=== PATIENT | male | born 1945 | race Two or more races ===

== ENCOUNTER → 2016-12-23 | Outpatient (CLI) | payer MEDICARE, OTHER ==
[2016-12-23 10:50] LABS: Basophils # (auto) 0.1 uL; Basophils % (auto) 0.9 % (0.0-2.0); Eosinophils # (auto) 0.3 uL; Eosinophils % (auto) 5.1 % (0.0-7.0); Hematocrit 46.2 % (41.0-53.0); Hemoglobin 14.5 g/dL (13.5-17.5); Lymphocytes % (auto) 31.4 % (10.0-50.0); Mean Corpuscular Hgb Conc. 31.5 g/dL (32.0-36.0); Mean Platelet Volume 8.9 fL (7.4-10.4); Monocytes # (auto) 0.5 uL; Monocytes % (auto) 7.7 % (0.0-12.0); Neutrophils # (auto) 3.5 uL; Neutrophils % (auto) 54.9 % (37.0-80.0); Platelet Count (auto) 223 10^3/uL (140-450); Urine Bilirubin Negative (Negative); Urine Blood Negative /uL (Negative); Urine Color Yellow (Yellow); Urine Glucose Normal (Normal); Urine Ketone Negative (Negative); Urine Nitrite Negative (Negative); Urine RBC 1 /hpf (0 - 3); Urine Squamous Epithelial Cell FEW /hpf (<5); Urine Urobilinogen Normal (Negative); Urine pH 6.5 (5.0-8.0); White Blood Cell 6.3 10^3/uL (4.4-10.8)
[2016-12-23 11:27] LABS: BUN/Creatinine Ratio 8.8; Bilirubin, Total 0.6 mg/dL (0.2-1.0); Calcium 9.2 mg/dL (8.5-10.1); Potassium 4.4 mmol/L (3.5-5.1); Total Protein 7.9 g/dL (6.4-8.2)
== END | disposition home or self-care (01) ==
LOC: LAB 09:54
PROVIDERS: ATTEND Internal Medicine
DX: I10 Essential (primary) hypertension (principal); E11.40 Type 2 diabetes mellitus with diabetic neuropathy, unspecified; E55.9 Vitamin D deficiency, unspecified
CPT/HCPCS: 36415; 80053; 80061; 81001; 82043; 82270; 82306; 83036; 85025

== ENCOUNTER → 2017-05-12 | Outpatient (CLI) | payer MEDICARE ==
[2017-05-12 10:25] LABS: Albumin 3.4 g/dL (3.4-5.0); BUN/Creatinine Ratio 18.5; Bilirubin, Total 0.7 mg/dL (0.2-1.0); Calcium 9.2 mg/dL (8.5-10.1); Total Protein 7.2 g/dL (6.4-8.2)
== END | disposition home or self-care (01) ==
LOC: LAB 09:47
PROVIDERS: ATTEND Internal Medicine
DX: E78.2 Mixed hyperlipidemia (principal); I10 Essential (primary) hypertension
CPT/HCPCS: 36415; 80053; 80061; 83036

== ENCOUNTER → 2017-05-30 | Outpatient (CLI) | payer MEDICARE, OTHER | END | disposition home or self-care (01) | LOC: XYW 08:16 | PROVIDERS: ATTEND Internal Medicine | DX: I08.0 Rheumatic disorders of both mitral and aortic valves (principal) | CPT/HCPCS: 93306 ==

== ENCOUNTER → 2017-09-25 | Outpatient (CLI) | payer MEDICARE, OTHER ==
[2017-09-25 09:55] LABS: Albumin 3.4 g/dL (3.4-5.0); BUN/Creatinine Ratio 21.3; Bilirubin, Total 0.8 mg/dL (0.2-1.0); Calcium 8.9 mg/dL (8.5-10.1); Potassium 3.9 mmol/L (3.5-5.1); Total Protein 7.4 g/dL (6.4-8.2)
== END | disposition home or self-care (01) ==
LOC: LAB 08:19
PROVIDERS: ATTEND Nurse Practitioner
DX: I10 Essential (primary) hypertension (principal); E11.9 Type 2 diabetes mellitus without complications; R35.1 Nocturia; R35.0 Frequency of micturition
CPT/HCPCS: 36415; 80053; 83036; 84153; 86803

== ENCOUNTER → 2018-02-13 | Outpatient (CLI) | payer MEDICARE ==
[2018-02-13 08:43] LABS: Basophils # (auto) 0.1 uL; Basophils % (auto) 1.1 % (0.0-2.0); Eosinophils # (auto) 0.3 uL; Eosinophils % (auto) 4.5 % (0.0-7.0); Hematocrit 40.3 % (41.0-53.0); Hemoglobin 13.2 g/dL (13.5-17.5); Lymphocytes # (auto) 1.4 uL; Lymphocytes % (auto) 20.4 % (10.0-50.0); Mean Corpuscular Hemoglobin 27.9 pg (28.0-32.0); Mean Corpuscular Hgb Conc. 32.8 g/dL (32.0-36.0); Mean Corpuscular Volume 84.9 fL (80.0-100.0); Monocytes # (auto) 0.6 uL; Monocytes % (auto) 8.1 % (0.0-12.0); Neutrophils # (auto) 4.6 uL; Neutrophils % (auto) 65.9 % (37.0-80.0); Nucleated Red Blood Cells % 0.1 %; Platelet Count (auto) 166 10^3/uL (140-450); Red Blood Cells 4.75 10^6/uL (4.5-5.90); Red Cell Distribution Width 17.9 % (11.8-14.3)
[2018-02-13 08:52] LABS: Urine Bacteria NONE SEEN /hpf (None Seen); Urine Blood Negative /uL (Negative); Urine Specific Gravity 1.011 (1.001-1.035); Urine WBC 2 /hpf (0 - 3)
[2018-02-13 09:44] LABS: Albumin 3.7 g/dL (3.4-5.0); BUN/Creatinine Ratio 18.1; Calcium 9.4 mg/dL (8.5-10.1); Total Protein 7.7 g/dL (6.4-8.2)
== END | disposition home or self-care (01) ==
LOC: LAB 07:29
PROVIDERS: ATTEND Nurse Practitioner
DX: E11.40 Type 2 diabetes mellitus with diabetic neuropathy, unspecified (principal); E78.5 Hyperlipidemia, unspecified; I10 Essential (primary) hypertension
CPT/HCPCS: 36415; 80053; 80061; 81001; 82043; 83036; 84443; 85025

== ENCOUNTER → 2018-06-19 | Outpatient (CLI) | payer MEDICARE, OTHER | END | disposition home or self-care (01) | LOC: Rad HDHVI 12:47 | PROVIDERS: ATTEND Internal Medicine | DX: I07.1 Rheumatic tricuspid insufficiency (principal); I10 Essential (primary) hypertension; M79.89 Other specified soft tissue disorders; E11.9 Type 2 diabetes mellitus without complications | CPT/HCPCS: 93306; 93970 ==

== ENCOUNTER → 2018-06-21 | Outpatient (CLI) | payer MEDICARE, OTHER ==
[~2018-06-21] VITALS: Ht 162.6 cm; Wt 89.4 kg
== END | disposition home or self-care (01) ==
LOC: Rad HDHVI 13:28
PROVIDERS: ATTEND Internal Medicine Cardiovascular Disease
DX: I10 Essential (primary) hypertension (principal); E11.9 Type 2 diabetes mellitus without complications; R60.0 Localized edema; R06.02 Shortness of breath; Z88.2 Allergy status to sulfonamides; Z88.6 Allergy status to analgesic agent
CPT/HCPCS: 78452; 93017; 96374; A9500

== ENCOUNTER → 2018-07-02 | Outpatient (CLI) | payer MEDICARE, OTHER ==
[2018-07-02 08:59] LABS: Basophils # (auto) 0.1 uL; Eosinophils # (auto) 0.4 uL; Eosinophils % (auto) 5.9 % (0.0-7.0); Hemoglobin 14.2 g/dL (13.5-17.5); Lymphocytes # (auto) 1.9 uL; Lymphocytes % (auto) 27.3 % (10.0-50.0); Mean Corpuscular Hemoglobin 29.3 pg (28.0-32.0); Mean Corpuscular Hgb Conc. 33.7 g/dL (32.0-36.0); Mean Corpuscular Volume 86.7 fL (80.0-100.0); Monocytes # (auto) 0.6 uL; Monocytes % (auto) 8.9 % (0.0-12.0); Neutrophils # (auto) 3.9 uL; Neutrophils % (auto) 56.9 % (37.0-80.0); Nucleated Red Blood Cells % 0.1 %; Platelet Count (auto) 141 10^3/uL (140-450); Red Blood Cells 4.85 10^6/uL (4.5-5.90); Red Cell Distribution Width 16.5 % (11.8-14.3); White Blood Cell 6.9 10^3/uL (4.4-10.8)
[2018-07-02 09:02] LABS: Urine Bacteria NONE SEEN /hpf (None Seen); Urine Blood Negative /uL (Negative); Urine Specific Gravity 1.018 (1.001-1.035); Urine WBC 1 /hpf (0 - 3)
[2018-07-02 09:30] LABS: Albumin 3.8 g/dL (3.4-5.0); BUN/Creatinine Ratio 22.2; Bilirubin, Total 0.7 mg/dL (0.2-1.0); Calcium 9.4 mg/dL (8.5-10.1); Potassium 3.6 mmol/L (3.5-5.1); Total Protein 7.8 g/dL (6.4-8.2)
[2018-07-02 11:20] LABS: Hepatitis B Surface Antibody Negative
[2018-07-02 11:49] LABS: Hepatitis A Total Antibody Negative
[2018-07-02 13:04] LABS: Hepatitis B Core Total AB Negative; Hepatitis B Surface Antigen Negative (Negative); Hepatitis C Antibody Negative (Negative)
== END | disposition home or self-care (01) ==
LOC: LAB 07:23
PROVIDERS: ATTEND Nurse Practitioner
DX: E11.9 Type 2 diabetes mellitus without complications (principal); E78.5 Hyperlipidemia, unspecified; I10 Essential (primary) hypertension; J45.909 Unspecified asthma, uncomplicated; Z79.899 Other long term (current) drug therapy
CPT/HCPCS: 36415; 80053; 81001; 82043; 82306; 83036; 85025; 86704; 86706; 86708; 86803; 87340

== ENCOUNTER → 2018-09-20 | Outpatient (CLI) | payer MEDICARE, OTHER | END | disposition home or self-care (01) | LOC: Rad HDHVI 07:52 | PROVIDERS: ATTEND Internal Medicine | DX: I07.1 Rheumatic tricuspid insufficiency (principal); I10 Essential (primary) hypertension; I42.9 Cardiomyopathy, unspecified | CPT/HCPCS: 93306 ==

== ENCOUNTER → 2019-01-29 | Outpatient (CLI) | payer MEDICARE, OTHER | END | disposition home or self-care (01) | LOC: Rad HDHVI 09:56 | PROVIDERS: ATTEND Internal Medicine | DX: I08.1 Rheumatic disorders of both mitral and tricuspid valves (principal); I42.9 Cardiomyopathy, unspecified; I10 Essential (primary) hypertension; E11.9 Type 2 diabetes mellitus without complications | CPT/HCPCS: 93306 ==

== ENCOUNTER → 2021-11-12 | Outpatient (CLI) | payer MEDICARE, OTHER ==
[2021-11-12 11:30] LABS: Basophils # (auto) 0.1 10 ^3/uL (0-0.2); Basophils % (auto) 1.3 % (0.0-2.0); Eosinophils # (auto) 0.2 10 ^3/uL (0-0.8); Eosinophils % (auto) 3.6 % (0.0-7.0); Hematocrit 40.4 % (41.0-53.0); Hemoglobin 13.2 g/dL (13.5-17.5); Lymphocytes # (auto) 1.1 10 ^3/uL (0.4-5.4); Lymphocytes % (auto) 18.5 % (10.0-50.0); Mean Corpuscular Hemoglobin 28.8 pg (28.0-32.0); Mean Corpuscular Hgb Conc. 32.7 g/dL (32.0-36.0); Mean Corpuscular Volume 88.2 fL (80.0-100.0); Monocytes # (auto) 0.5 10 ^3/uL (0-1.3); Monocytes % (auto) 8.1 % (0.0-12.0); Neutrophils # (auto) 4.1 10 ^3/uL (1.6-8.6); Neutrophils % (auto) 68.5 % (37.0-80.0); Nucleated Red Blood Cells % 0.1 %; Red Blood Cells 4.58 10^6/uL (4.5-5.90); Red Cell Distribution Width 15.6 % (11.8-14.3); White Blood Cell 5.9 10^3/uL (4.4-10.8)
[2021-11-12 11:31] LABS: Urine Blood Negative /uL (Negative); Urine Specific Gravity 1.018 (1.001-1.035)
[2021-11-12 11:45] LABS: Albumin 3.4 g/dL (3.4-5.0); Calcium 9.1 mg/dL (8.5-10.1); Potassium 3.7 mmol/L (3.5-5.1)
[2021-11-12 11:52] LABS: BUN/Creatinine Ratio 18.9; Bilirubin, Total 1.3 mg/dL (0.2-1.0); Total Protein 7.4 g/dL (6.4-8.2)
[2021-11-12 11:54] LABS: Free T4 (Free Thyroxine) 1.45 ng/dL (0.89-1.76); Prostate Specific Antigen 1.01 ng/mL (0.0-4.0)
== END | disposition home or self-care (01) ==
LOC: LAB 08:26
PROVIDERS: ATTEND Internal Medicine
DX: C61 Malignant neoplasm of prostate (principal); E11.9 Type 2 diabetes mellitus without complications; D51.3 Other dietary vitamin B12 deficiency anemia; D64.9 Anemia, unspecified; E55.9 Vitamin D deficiency, unspecified; I10 Essential (primary) hypertension; R00.2 Palpitations; R53.1 Weakness; R30.0 Dysuria
CPT/HCPCS: 36415; 80053; 80061; 81003; 82306; 82607; 83036; 84153; 84403; 84439; 84443; 85025

== ENCOUNTER → 2021-11-17 | Outpatient (CLI) | payer MEDICARE, OTHER | END | disposition home or self-care (01) | LOC: Rad HDHVI 10:00 | PROVIDERS: ATTEND Internal Medicine | DX: I08.8 Other rheumatic multiple valve diseases (principal); I48.91 Unspecified atrial fibrillation; I10 Essential (primary) hypertension; I42.0 Dilated cardiomyopathy | CPT/HCPCS: 93306 ==

== ENCOUNTER → 2021-11-22 | Outpatient (CLI) | payer MEDICARE, OTHER ==
[~2021-11-22] VITALS: Ht 162.6 cm; Wt 89.4 kg
[~2021-11-22] MED LIST: ADENOSINE 75 MG in GIVE UN-DILUTED 0 ML IV ONE; ADENOSINE 90 MG/30 ML INJ IV ONE; APIX5TAB PO; CHLO25TA2 PO; EMPA1TAB3 PO; FURO20TA3 PO; GLYB5TAB8 PO; LOSA-39 PO; METF-929 PO; SACU1TAB PO
== END | disposition home or self-care (01) ==
LOC: Rad HDHVI 08:58
PROVIDERS: ATTEND Internal Medicine
DX: I10 Essential (primary) hypertension (principal)
CPT/HCPCS: J0153

== ENCOUNTER → 2021-11-30 | Outpatient (CLI) | payer MEDICARE, OTHER ==
[~2021-11-30] VITALS: Ht 162.6 cm; Wt 89.4 kg
[~2021-11-30] MED LIST changes: -ADENOSINE 75 MG in GIVE UN-DILUTED 0 ML IV ONE; -ADENOSINE 90 MG/30 ML INJ IV ONE; -APIX5TAB PO; -CHLO25TA2 PO; +DOBUTamine 1000MCG/ML 100 ML IV ONE; +DOBUTamine 1000MCG/ML 250 ML IV ONE; -EMPA1TAB3 PO; -FURO20TA3 PO; -GLYB5TAB8 PO; -LOSA-39 PO; -METF-929 PO; -SACU1TAB PO
== END | disposition home or self-care (01) ==
LOC: Rad HDHVI 09:01
PROVIDERS: ATTEND Internal Medicine
DX: I11.0 Hypertensive heart disease with heart failure (principal); I50.22 Chronic systolic (congestive) heart failure; I42.0 Dilated cardiomyopathy; E11.42 Type 2 diabetes mellitus with diabetic polyneuropathy; E78.2 Mixed hyperlipidemia; Z82.49 Family history of ischemic heart disease and other diseases of the circulatory system
CPT/HCPCS: 78452; 93005; 96374; 96375; A9500; J1250

== ENCOUNTER 2022-01-12 08:29 | Inpatient (IN) | payer MEDICARE, OTHER ==
[2022-01-12] VITALS (8 sets, daily range): BP systolic 101–129; BP diastolic 51–64
[~2022-01-12] VITALS: Ht 162.6 cm; Wt 85.0 kg
[~2022-01-12 08:29] MED LIST changes: +APIX5TAB PO; +CHLO25TA2 PO; -DOBUTamine 1000MCG/ML 100 ML IV ONE; -DOBUTamine 1000MCG/ML 250 ML IV ONE; +EMPA1TAB3 PO; +FURO20TA3 PO; +GLYB5TAB8 PO; +LOSA-39 PO; +METF-929 PO; +SACU1TAB PO
[2022-01-12] MEDS ORDERED: ANGIOMAX 250 MG VIAL IV ONE (09:18)
[2022-01-12] MEDS ORDERED: HEPARIN SODIUM (PORCINE) 5000 UNITS/ML 1ML VIAL ONE (09:18)
[2022-01-12] MEDS ORDERED: LIDOCAINE 2%HCL (LOCAL ANESTH.) INJ 20ML MDV ONE (09:19)
[2022-01-12] MEDS ORDERED: SODIUM CHL 0.9% 0 ML ONE (09:19)
[2022-01-12] MEDS ORDERED: HEPARIN IN NS 1000Units/500mL 1,500 ML ONE (09:19)
[2022-01-12] MEDS ORDERED: fentaNYL CITRATE 100 MCG/2 ML VL ONE (09:19)
[2022-01-12] MEDS ORDERED: VERAPAMIL 2.5MG/ML INJ 2ML VIAL IV ONE (09:19)
[2022-01-12] MEDS ORDERED: MIDAZOLAM HCL 2MG/2ML 2ml VIAL (1mg/ml) ONE (09:19)
[2022-01-12] MEDS ORDERED: IODIXANOL 320MG/ML 100ML BTL IV ONE (09:41)
[2022-01-12] MEDS ORDERED: MORPHINE SULFATE INJECTION 2 MG/ML SYRG IV PRN (10:30)
[2022-01-12] MEDS ORDERED: NITROGLYCERIN 0.4 MG SL TAB SL PRN (10:30)
[2022-01-12] MEDS: SODIUM CHL 0.9% 1,000 ML IV SCH (13:17)
[2022-01-12] MEDS ORDERED: DEXTROSE (50%) 50ML SYRG IV PRN (18:45)
[2022-01-12] MEDS: InsuLIN REG 1unit/0.01ml Soln (100units/ml) SC SCH (20:17)
[2022-01-12] MEDS: ACCU-CHEK COMFORT CURVE STRIP VI SCH (20:18)
[2022-01-13 05:00] VITALS: BP 119/58
[2022-01-13] MEDS: InsuLIN REG 1unit/0.01ml Soln (100units/ml) SC SCH ×4 (06:43→22:00)
[2022-01-13] MEDS: ACCU-CHEK COMFORT CURVE STRIP VI SCH ×4 (06:44→21:48)
[2022-01-13] MEDS ORDERED: glyBURIDE 5 MG TAB PO SCH (07:00)
[2022-01-13 09:00] VITALS: BP 128/62
[2022-01-13] MEDS: LOSARTAN POTASSIUM 50 MG TAB PO SCH (09:31)
[2022-01-13] MEDS ORDERED: CLOPIDOGREL BISULFATE 75 MG TAB PO ONE (11:45)
[2022-01-13 12:53] LABS: Basophils # (auto) 0 10 ^3/uL (0-0.2); Basophils % (auto) 0.4 % (0.0-2.0); Eosinophils # (auto) 0.3 10 ^3/uL (0-0.8); Eosinophils % (auto) 6.4 % (0.0-7.0); Hematocrit 45.2 % (41.0-53.0); Hemoglobin 14.9 g/dL (13.5-17.5); Lymphocytes # (auto) 1.1 10 ^3/uL (0.4-5.4); Lymphocytes % (auto) 19.8 % (10.0-50.0); Mean Corpuscular Hemoglobin 28.7 pg (28.0-32.0); Mean Corpuscular Hgb Conc. 32.9 g/dL (32.0-36.0); Mean Corpuscular Volume 87.3 fL (80.0-100.0); Monocytes # (auto) 0.5 10 ^3/uL (0-1.3); Neutrophils # (auto) 3.5 10 ^3/uL (1.6-8.6); Neutrophils % (auto) 64.4 % (37.0-80.0); Nucleated Red Blood Cells % 0.2 %; Red Blood Cells 5.17 10^6/uL (4.5-5.90); Red Cell Distribution Width 17.3 % (11.8-14.3); White Blood Cell 5.4 10^3/uL (4.4-10.8)
[2022-01-13 13:00] VITALS: BP 140/63
[2022-01-13 13:05] LABS: Albumin 3.5 g/dL (3.4-5.0); Calcium 9.4 mg/dL (8.5-10.1)
[2022-01-13 13:10] LABS: Bilirubin, Total 0.8 mg/dL (0.2-1.0); Total Protein 7.6 g/dL (6.4-8.2)
[2022-01-13 20:00] VITALS: BP 138/70
[2022-01-13] MEDS: ATORVASTATIN 20 MG TAB PO SCH (21:48)
[2022-01-13 22:00] VITALS: BP 152/105
[2022-01-13 22:30] VITALS: BP 142/73
[2022-01-14] VITALS (13 sets, daily range): BP systolic 39–137; BP diastolic 19–96
[2022-01-14 06:18] LABS: Hemoglobin 15.6 g/dL (13.5-17.5); Mean Corpuscular Hemoglobin 29.3 pg (28.0-32.0); Mean Corpuscular Volume 86.4 fL (80.0-100.0); Red Blood Cells 5.33 10^6/uL (4.5-5.90); Red Cell Distribution Width 17.1 % (11.8-14.3); White Blood Cell 8.1 10^3/uL (4.4-10.8)
[2022-01-14] MEDS: ACCU-CHEK COMFORT CURVE STRIP VI SCH ×6 (06:28→23:28)
[2022-01-14] MEDS: InsuLIN REG 1unit/0.01ml Soln (100units/ml) SC SCH ×5 (06:30→23:28)
[2022-01-14 06:39] LABS: Basophils % (manual) 0 (0.0-2.0); Blast Cells 0; Metamyelocytes % 0; Myelocytes % 0; Promyelocytes % 0; Reactive Lymphocytes 0
[2022-01-14 06:43] LABS: Potassium 3.7 mmol/L (3.5-5.1)
[2022-01-14 06:54] LABS: BUN/Creatinine Ratio 22.3; Calcium 9.6 mg/dL (8.5-10.1); Magnesium 2.3 mg/dL (1.6-2.6)
[2022-01-14 07:30] LABS: INR 1.1 (0.9-1.15); Partial Thromboplastin Time 26.1 sec (23.6-33.0)
[2022-01-14 08:34] LABS: Band Neutrophils % (manual) 4; Eosinophils % (manual) 6 (0-7); Lymphocytes % (manual) 3 (10.0-50.0); Monocytes % (manual) 4 (0-12)
[2022-01-14] MEDS: LOSARTAN POTASSIUM 50 MG TAB PO SCH (10:00)
[2022-01-14] MEDS: CLOPIDOGREL BISULFATE 75 MG TAB PO SCH (10:00)
[2022-01-14] MEDS: CHOLECALCIFEROL (VITD3) 2,000 UNIT CAP/TAB PO SCH (11:19)
[2022-01-14] MEDS ORDERED: VERAPAMIL 2.5MG/ML INJ 2ML VIAL IV ONE (15:02)
[2022-01-14] MEDS ORDERED: ANGIOMAX 250 MG VIAL IV ONE ×3 (15:02→18:52)
[2022-01-14] MEDS ORDERED: HEPARIN SODIUM (PORCINE) 5000 UNITS/ML 1ML VIAL ONE (15:02)
[2022-01-14] MEDS ORDERED: SODIUM CHL 0.9% 50 ML ONE ×3 (15:03→18:52)
[2022-01-14] MEDS ORDERED: fentaNYL CITRATE 100 MCG/2 ML VL ONE ×4 (15:03→20:49)
[2022-01-14] MEDS ORDERED: MIDAZOLAM HCL 2MG/2ML 2ml VIAL (1mg/ml) ONE ×4 (15:03→17:34)
[2022-01-14] MEDS ORDERED: LIDOCAINE 2%HCL (LOCAL ANESTH.) INJ 10ml MDV ONE (15:09)
[2022-01-14] MEDS ORDERED: IODIXANOL 320MG/ML 100ML BTL IV ONE ×3 (15:09→18:44)
[2022-01-14] MEDS ORDERED: DOPamine 1600MCG/ML D5W 250 ML IV ONE (18:07)
[2022-01-14] MEDS ORDERED: EPINEPHrine HCL 1 MG/10 ML SYRG ONE (18:12)
[2022-01-14] MEDS ORDERED: ONDANSETRON HCL 4 MG/2 ML VIAL ONE ×2 (18:16→21:49)
[2022-01-14] MEDS ORDERED: [UNRECOGNIZED DRUG - OTHER] IV ONE (18:19)
[2022-01-14] MEDS ORDERED: NOREPINEPHRINE 8 MG/250ML KIT 250 ML IV ONE (18:21)
[2022-01-14] MEDS ORDERED: PANTOPRAZOLE 40 MG/10 ML VIAL INJ IV ONE (19:30)
[2022-01-14] MEDS ORDERED: D5W 5% 1,000 ML IV SCH (20:15)
[2022-01-14] MEDS ORDERED: D5W 5% XX ONE (21:00)
[2022-01-14] MEDS ORDERED: HEPARIN SODIUM XX ONE (21:00)
[2022-01-14] MEDS ORDERED: DEXTROSE (50%) 50ML SYRG IV PRN (21:30)
[2022-01-14] MEDS: DOPamine 1600MCG/ML D5W 250 ML IV SCH (21:30)
[2022-01-14] MEDS ORDERED: CLOPIDOGREL BISULFATE 75 MG TAB ONE (21:34)
[2022-01-14] MEDS ORDERED: HETASTARCH 500 ML IV ONE (21:45)
[2022-01-14] MEDS: ONDANSETRON HCL 4 MG/2 ML VIAL IV PRN (21:50)
[2022-01-14] MEDS: ATORVASTATIN 20 MG TAB PO SCH (22:00)
[2022-01-14 22:17] LABS: Hemoglobin 13.8 g/dL (13.5-17.5); Mean Corpuscular Hemoglobin 29.2 pg (28.0-32.0); Mean Corpuscular Hgb Conc. 33.7 g/dL (32.0-36.0); Mean Corpuscular Volume 86.8 fL (80.0-100.0); Red Blood Cells 4.72 10^6/uL (4.5-5.90); Red Cell Distribution Width 17.8 % (11.8-14.3)
[2022-01-14 22:19] LABS: Basophils % (manual) 0 (0.0-2.0); Blast Cells 0; Metamyelocytes % 0; Myelocytes % 0; Promyelocytes % 0; Reactive Lymphocytes 0
[2022-01-14 22:33] LABS: Band Neutrophils % (manual) 38; Eosinophils % (manual) 1 (0-7); Lymphocytes % (manual) 6 (10.0-50.0); Monocytes % (manual) 2 (0-12)
[2022-01-14 23:53] LABS: Calcium 8.6 mg/dL (8.5-10.1); Potassium 3.7 mmol/L (3.5-5.1)
[2022-01-14 23:56] LABS: BUN/Creatinine Ratio 22.9; Bilirubin, Total 3.1 mg/dL (0.2-1.0); Total Protein 6.8 g/dL (6.4-8.2)
[2022-01-15] VITALS (100 sets, daily range): BP systolic 40–115; BP diastolic 15–82
[2022-01-15 00:45] LABS: INR > 8.0 (0.9-1.15)
[2022-01-15 00:46] LABS: Partial Thromboplastin Time 120.3 sec (23.6-33.0)
[2022-01-15] MEDS ORDERED: ALBUMIN 5% 250 ML IV ONE (01:45)
[2022-01-15 04:21] LABS: Basophils # (auto) 0 10 ^3/uL (0-0.2); Eosinophils # (auto) 0.1 10 ^3/uL (0-0.8); Eosinophils % (auto) 0.6 % (0.0-7.0); Hematocrit 37.9 % (41.0-53.0); Hemoglobin 12.6 g/dL (13.5-17.5); Lymphocytes # (auto) 0.2 10 ^3/uL (0.4-5.4); Mean Corpuscular Hemoglobin 29.2 pg (28.0-32.0); Mean Corpuscular Hgb Conc. 33.3 g/dL (32.0-36.0); Mean Corpuscular Volume 87.7 fL (80.0-100.0); Monocytes % (auto) 8.6 % (0.0-12.0); Neutrophils # (auto) 10.1 10 ^3/uL (1.6-8.6); Neutrophils % (auto) 88.8 % (37.0-80.0); Red Blood Cells 4.32 10^6/uL (4.5-5.90); Red Cell Distribution Width 17.4 % (11.8-14.3); White Blood Cell 11.4 10^3/uL (4.4-10.8)
[2022-01-15 04:30] LABS: BUN/Creatinine Ratio 21.5; Calcium 8.3 mg/dL (8.5-10.1); Potassium 4.1 mmol/L (3.5-5.1)
[2022-01-15 05:14] LABS: INR 5.46 (0.9-1.15); Partial Thromboplastin Time 94.4 sec (23.6-33.0)
[2022-01-15] MEDS: ACCU-CHEK COMFORT CURVE STRIP VI SCH ×5 (05:37→23:48)
[2022-01-15] MEDS: InsuLIN REG 1unit/0.01ml Soln (100units/ml) SC SCH ×6 (05:37→23:48)
[2022-01-15 09:51] LABS: INR 2.57 (0.9-1.15); Partial Thromboplastin Time 68.9 sec (23.6-33.0)
[2022-01-15] MEDS: LOSARTAN POTASSIUM 50 MG TAB PO SCH (10:00)
[2022-01-15] MEDS: HEPARIN DRIP/D5W 100UNITS/ML 250 ML IV SCH ×2 (11:37→21:04)
[2022-01-15] MEDS: MILRINONE 20MG/100ML 100 ML IV SCH ×3 (11:38→18:05)
[2022-01-15] MEDS: NOREPINEPHRINE 8 MG/250ML KIT 250 ML IV SCH ×2 (11:38→21:45)
[2022-01-15] MEDS: EPINEPHrine HCL 250 ML IV SCH ×2 (11:38→21:45)
[2022-01-15] MEDS: PHENYLEPHRINE IV 250 ML IV SCH ×4 (11:39→22:45)
[2022-01-15] MEDS ORDERED: LIDOCAINE 2% JELLY 11ml (GLYDO) UR ONE (11:45)
[2022-01-15] MEDS: CLOPIDOGREL BISULFATE 75 MG TAB PO SCH (12:00)
[2022-01-15] MEDS: PANTOPRAZOLE 40 MG/10 ML VIAL INJ IV SCH (12:00)
[2022-01-15] MEDS: CHOLECALCIFEROL (VITD3) 2,000 UNIT CAP/TAB PO SCH (12:00)
[2022-01-15] MEDS: DOPamine 1600MCG/ML D5W 250 ML IV SCH (12:45)
[2022-01-15 15:20] LABS: Partial Thromboplastin Time 62.4 sec (23.6-33.0)
[2022-01-15 19:02] LABS: INR 1.71 (0.9-1.15); Partial Thromboplastin Time 56.8 sec (23.6-33.0)
[2022-01-15] MEDS: ONDANSETRON HCL 4 MG/2 ML VIAL IV PRN (19:32)
[2022-01-15] MEDS: ATORVASTATIN 20 MG TAB PO SCH (22:00)
[2022-01-15 22:52] LABS: Basophils # (auto) 0 10 ^3/uL (0-0.2); Basophils % (auto) 0.1 % (0.0-2.0); Eosinophils # (auto) 0.4 10 ^3/uL (0-0.8); Eosinophils % (auto) 4.2 % (0.0-7.0); Hematocrit 31.4 % (41.0-53.0); Hemoglobin 10.7 g/dL (13.5-17.5); Lymphocytes # (auto) 0.6 10 ^3/uL (0.4-5.4); Lymphocytes % (auto) 5.8 % (10.0-50.0); Mean Corpuscular Hemoglobin 29.3 pg (28.0-32.0); Mean Corpuscular Hgb Conc. 34.1 g/dL (32.0-36.0); Mean Corpuscular Volume 85.8 fL (80.0-100.0); Monocytes # (auto) 1.2 10 ^3/uL (0-1.3); Monocytes % (auto) 11.9 % (0.0-12.0); Neutrophils # (auto) 8.1 10 ^3/uL (1.6-8.6); Red Blood Cells 3.65 10^6/uL (4.5-5.90); Red Cell Distribution Width 17.6 % (11.8-14.3); White Blood Cell 10.4 10^3/uL (4.4-10.8)
[2022-01-15 23:04] LABS: INR 1.53 (0.9-1.15); Partial Thromboplastin Time 53.3 sec (23.6-33.0)
[2022-01-15 23:06] LABS: Albumin 2.8 g/dL (3.4-5.0); Anion Gap 9 (5-15); BUN/Creatinine Ratio 15.5; Blood Urea Nitrogen 53 mg/dL (7-18); Calcium 7.6 mg/dL (8.5-10.1); Carbon Dioxide 22 mmol/L (21-32); Chloride 102 mmol/L (98-107); GFR African American 23 mL/min; GFR Non-African American 19 mL/min; Glucose 202 mg/dL (74-106); Potassium 3.7 mmol/L (3.5-5.1); Sodium 133 mmol/L (136-145)
[2022-01-15 23:18] LABS: Alanine Aminotransferase 37 U/L (16-61); Alkaline Phosphatase 49 U/L (45-117); Aspartate Aminotransferase 378 U/L (15-37); Bilirubin, Total 2.3 mg/dL (0.2-1.0); Total Protein 5.8 g/dL (6.4-8.2)
[2022-01-16] VITALS (90 sets, daily range): BP systolic 39–117; BP diastolic 11–74
[2022-01-16] MEDS: DOPamine 1600MCG/ML D5W 250 ML IV SCH ×3 (00:30→22:06)
[2022-01-16] MEDS: PANTOPRAZOLE 40 MG/10 ML VIAL INJ IV SCH ×3 (01:00→22:05)
[2022-01-16] MEDS ORDERED: ALBUMIN 5% 250 ML IV ONE (01:30)
[2022-01-16] MEDS: ONDANSETRON HCL 4 MG/2 ML VIAL IV PRN (03:08)
[2022-01-16] MEDS: MILRINONE 20MG/100ML 100 ML IV SCH ×3 (04:15→17:34)
[2022-01-16 04:46] LABS: Basophils # (auto) 0 10 ^3/uL (0-0.2); Basophils % (auto) 0.2 % (0.0-2.0); Eosinophils # (auto) 0.5 10 ^3/uL (0-0.8); Eosinophils % (auto) 5.4 % (0.0-7.0); Hematocrit 29.9 % (41.0-53.0); Hemoglobin 10.1 g/dL (13.5-17.5); Lymphocytes # (auto) 0.6 10 ^3/uL (0.4-5.4); Lymphocytes % (auto) 5.8 % (10.0-50.0); Mean Corpuscular Hemoglobin 29.3 pg (28.0-32.0); Mean Corpuscular Hgb Conc. 33.9 g/dL (32.0-36.0); Mean Corpuscular Volume 86.4 fL (80.0-100.0); Monocytes # (auto) 1.1 10 ^3/uL (0-1.3); Monocytes % (auto) 11.3 % (0.0-12.0); Neutrophils # (auto) 7.4 10 ^3/uL (1.6-8.6); Neutrophils % (auto) 77.3 % (37.0-80.0); Nucleated Red Blood Cells % 0.1 %; Red Blood Cells 3.46 10^6/uL (4.5-5.90); Red Cell Distribution Width 17.5 % (11.8-14.3); White Blood Cell 9.6 10^3/uL (4.4-10.8)
[2022-01-16 04:50] LABS: Chloride 102 mmol/L (98-107); Potassium 3.7 mmol/L (3.5-5.1); Sodium 133 mmol/L (136-145)
[2022-01-16 04:53] LABS: INR 1.43 (0.9-1.15); Partial Thromboplastin Time 53.4 sec (23.6-33.0)
[2022-01-16 04:54] LABS: Anion Gap 11 (5-15); Blood Urea Nitrogen 56 mg/dL (7-18); Calcium 7.5 mg/dL (8.5-10.1); Carbon Dioxide 20 mmol/L (21-32); GFR African American 21 mL/min; GFR Non-African American 17 mL/min; Glucose 172 mg/dL (74-106)
[2022-01-16] MEDS: ACCU-CHEK COMFORT CURVE STRIP VI SCH ×4 (06:02→22:09)
[2022-01-16] MEDS: InsuLIN REG 1unit/0.01ml Soln (100units/ml) SC SCH ×4 (06:02→22:32)
[2022-01-16] MEDS: LOSARTAN POTASSIUM 50 MG TAB PO SCH (10:00)
[2022-01-16] MEDS: CHOLECALCIFEROL (VITD3) 2,000 UNIT CAP/TAB PO SCH (10:00)
[2022-01-16 10:05] LABS: INR 1.36 (0.9-1.15); Partial Thromboplastin Time 51.1 sec (23.6-33.0)
[2022-01-16] MEDS ORDERED: D5W 5% XX SCH (10:15)
[2022-01-16] MEDS ORDERED: HEPARIN SODIUM XX SCH (10:15)
[2022-01-16] MEDS ORDERED: MEPERIDINE HCL (25 MG/ML) 1ML VIAL IM ONE (11:00)
[2022-01-16] MEDS ORDERED: chlorproMAZINE HCL 25 MG/1 ML AMP IM ONE (11:00)
[2022-01-16] MEDS ORDERED: LIDOCAINE 2%HCL (LOCAL ANESTH.) INJ 10ml MDV ONE (11:10)
[2022-01-16] MEDS: PHENYLEPHRINE IV 250 ML IV SCH ×3 (11:13→18:57)
[2022-01-16] MEDS ORDERED: FUROSEMIDE 40 MG/4 ML VIAL IV ONE (12:00)
[2022-01-16] MEDS: METOCLOPRAMIDE HCL 5MG/ml INJ 2ml VIAL IV SCH ×2 (14:00→22:05)
[2022-01-16] MEDS: CLOPIDOGREL BISULFATE 75 MG TAB PO SCH (14:00)
[2022-01-16 14:31] LABS: Alanine Aminotransferase 39 U/L (16-61); Albumin 2.9 g/dL (3.4-5.0); Anion Gap 15 (5-15); Aspartate Aminotransferase 261 U/L (15-37); BUN/Creatinine Ratio 14.1; Blood Urea Nitrogen 61 mg/dL (7-18); Calcium 7.7 mg/dL (8.5-10.1); Carbon Dioxide 17 mmol/L (21-32); Chloride 100 mmol/L (98-107); GFR African American 17 mL/min; GFR Non-African American 14 mL/min; Glucose 217 mg/dL (74-106); Magnesium 1.9 mg/dL (1.6-2.6); Sodium 132 mmol/L (136-145)
[2022-01-16 14:33] LABS: Alkaline Phosphatase 54 U/L (45-117); Bilirubin, Total 1.9 mg/dL (0.2-1.0)
[2022-01-16 14:44] LABS: Basophils # (auto) 0 10 ^3/uL (0-0.2); Basophils % (auto) 0.1 % (0.0-2.0); Eosinophils # (auto) 0.3 10 ^3/uL (0-0.8); Eosinophils % (auto) 2.5 % (0.0-7.0); Hematocrit 31.3 % (41.0-53.0); Hemoglobin 10.3 g/dL (13.5-17.5); Lymphocytes # (auto) 0.4 10 ^3/uL (0.4-5.4); Lymphocytes % (auto) 3.4 % (10.0-50.0); Mean Corpuscular Hemoglobin 28.8 pg (28.0-32.0); Mean Corpuscular Hgb Conc. 33.1 g/dL (32.0-36.0); Mean Corpuscular Volume 86.9 fL (80.0-100.0); Monocytes # (auto) 1.2 10 ^3/uL (0-1.3); Monocytes % (auto) 10.3 % (0.0-12.0); Neutrophils # (auto) 9.6 10 ^3/uL (1.6-8.6); Neutrophils % (auto) 83.7 % (37.0-80.0); Red Cell Distribution Width 17.4 % (11.8-14.3); White Blood Cell 11.5 10^3/uL (4.4-10.8)
[2022-01-16 14:48] LABS: INR 1.28 (0.9-1.15); Partial Thromboplastin Time 41.7 sec (23.6-33.0)
[2022-01-16] MEDS ORDERED: SODIUM BICARBONATE 8.4 % INJ 50ML VIAL IV ONE (15:00)
[2022-01-16] MEDS: SODIUM CHL 0.9% 1,000 ML IV SCH (17:00)
[2022-01-16] MEDS ORDERED: FUROSEMIDE 100 MG/10ML VIAL IV ONE (18:45)
[2022-01-16] MEDS: EPINEPHrine HCL 250 ML IV SCH (21:45)
[2022-01-16] MEDS: NOREPINEPHRINE 8 MG/250ML KIT 250 ML IV SCH (21:45)
[2022-01-16] MEDS: HYDROmorphone HCL 2 MG/ML VL/or syr IV PRN (22:00)
[2022-01-16] MEDS: ATORVASTATIN 20 MG TAB PO SCH (22:05)
[2022-01-17] VITALS (85 sets, daily range): BP systolic 29–116; BP diastolic 7–71
[2022-01-17] MEDS: PHENYLEPHRINE IV 250 ML IV SCH ×5 (01:22→15:48)
[2022-01-17] MEDS: DOPamine 1600MCG/ML D5W 250 ML IV SCH ×4 (02:34→18:18)
[2022-01-17] MEDS: HYDROmorphone HCL 2 MG/ML VL/or syr IV PRN ×2 (04:54→09:52)
[2022-01-17] MEDS: ONDANSETRON HCL 4 MG/2 ML VIAL IV PRN ×2 (04:59→10:46)
[2022-01-17] MEDS: METOCLOPRAMIDE HCL 5MG/ml INJ 2ml VIAL IV SCH ×2 (06:23→13:23)
[2022-01-17] MEDS: InsuLIN REG 1unit/0.01ml Soln (100units/ml) SC SCH ×3 (06:53→17:04)
[2022-01-17] MEDS: ACCU-CHEK COMFORT CURVE STRIP VI SCH ×3 (06:54→17:04)
[2022-01-17] MEDS: MILRINONE 20MG/100ML 100 ML IV SCH (07:17)
[2022-01-17 07:54] LABS: Albumin 1.5 g/dL (3.4-5.0); Anion Gap 11 (5-15); Blood Urea Nitrogen 44 mg/dL (7-18); Carbon Dioxide 11 mmol/L (21-32); Chloride 120 mmol/L (98-107); Glucose 184 mg/dL (74-106); Sodium 142 mmol/L (136-145)
[2022-01-17 07:57] LABS: Alanine Aminotransferase 17 U/L (16-61); Alkaline Phosphatase 32 U/L (45-117); Aspartate Aminotransferase 74 U/L (15-37); BUN/Creatinine Ratio 15.3; Bilirubin, Total 0.7 mg/dL (0.2-1.0); GFR African American 28 mL/min; GFR Non-African American 23 mL/min; Total Protein 3.3 g/dL (6.4-8.2)
[2022-01-17 08:31] LABS: Basophils # (auto) 0.1 10 ^3/uL (0-0.2); Basophils % (auto) 0.5 % (0.0-2.0); Eosinophils # (auto) 0.1 10 ^3/uL (0-0.8); Eosinophils % (auto) 1.2 % (0.0-7.0); Hematocrit 28.4 % (41.0-53.0); Hemoglobin 9.4 g/dL (13.5-17.5); Lymphocytes # (auto) 0.5 10 ^3/uL (0.4-5.4); Mean Corpuscular Hgb Conc. 33.3 g/dL (32.0-36.0); Monocytes # (auto) 1.2 10 ^3/uL (0-1.3); Monocytes % (auto) 9.9 % (0.0-12.0); Neutrophils # (auto) 10.6 10 ^3/uL (1.6-8.6); Neutrophils % (auto) 84.4 % (37.0-80.0); Red Blood Cells 3.26 10^6/uL (4.5-5.90); Red Cell Distribution Width 17.6 % (11.8-14.3); White Blood Cell 12.6 10^3/uL (4.4-10.8)
[2022-01-17 08:37] LABS: Potassium 2.7 mmol/L (3.5-5.1)
[2022-01-17 08:38] LABS: Calcium < 5.0 mg/dL (8.5-10.1)
[2022-01-17 08:58] LABS: INR 1.26 (0.9-1.15); Partial Thromboplastin Time 46.7 sec (23.6-33.0)
[2022-01-17] MEDS: LOSARTAN POTASSIUM 50 MG TAB PO SCH (09:03)
[2022-01-17] MEDS: CHOLECALCIFEROL (VITD3) 2,000 UNIT CAP/TAB PO SCH (09:17)
[2022-01-17] MEDS: PANTOPRAZOLE 40 MG/10 ML VIAL INJ IV SCH (09:17)
[2022-01-17] MEDS: CLOPIDOGREL BISULFATE 75 MG TAB PO SCH (09:17)
[2022-01-17] MEDS ORDERED: POTASSIUM CHL 20 Meq TABLET PO ONE (10:00)
[2022-01-17] MEDS ORDERED: ENOXAPARIN SOD 40 MG/0.4 ML SYRINGE SC SCH (10:00)
[2022-01-17] MEDS ORDERED: ENOXAPARIN SOD 30 MG/0.3 ML SYRINGE SC SCH (10:00)
[2022-01-17] MEDS ORDERED: CALCIUM GLUC 1,000mg/50ml-NS 50 ML IV ONE ×5 (10:00→12:30)
[2022-01-17] MEDS ORDERED: SODIUM CHLORIDE 0.9% 1,000 ML IV ONE (11:30)
[2022-01-17] MEDS: ALBUMIN 25% 100 ML IV SCH ×2 (11:50→18:13)
[2022-01-17] MEDS: POTASSIUM CHL 20MEQ/100ML 100 ML IV SCH ×4 (11:50→14:15)
[2022-01-17 12:36] LABS: Phosphorus 3.8 mg/dL (2.5-4.90)
[2022-01-17 12:37] LABS: Magnesium 1.1 mg/dL (1.6-2.6)
[2022-01-17] MEDS ORDERED: FUROSEMIDE 100 MG/10ML VIAL IV ONE (12:45)
[2022-01-17] MEDS ORDERED: PHENYLEPHRINE INJ 40 MG in SODIUM CHL 0.9% 246 ML IV SCH (16:30)
[2022-01-17] MEDS ORDERED: ATROPINE SULFATE 1 MG/1 ML VIAL ONE (20:39)
[2022-01-17] MEDS ORDERED: SUCCINYLCHOLINE CHLORIDE 20 MG/ML 10ML VIAL IV ONE (20:55)
[2022-01-17] MEDS ORDERED: ETOMIDATE (2MG/ML) 20ML VIAL IV ONE (20:55)
[2022-01-17] MEDS ORDERED: EPINEPHrine HCL 1 MG/10 ML SYRG ONE (21:13)
[2022-01-17] MEDS ORDERED: EPINEPHrine HCL 1 MG/1 ML AMP ONE (21:14)
[2022-01-18] MEDS ORDERED: SODIUM BICARBONATE 8.4% INJ 50ML SYRINGE IV ONE (01:29)
[2022-01-18] MEDS ORDERED: CALCIUM CHLOR(10%) 100MG/ML 10ML SYRINGE IV ONE (01:29)
[2022-01-18] MEDS ORDERED: EPINEPHrine HCL 1 MG/10 ML SYRG IV ONE (01:29)
[2022-01-18] MEDS ORDERED: ATROPINE SULF 1 MG/10ml SYR IM ONE (01:29)
== END 2022-01-17 21:15 | DRG 215 ==
LOC: CATH 08:29 → TELE-WESTW 10:18 → ICU WEST 01-14 21:40
PROVIDERS: ADMIT Internal Medicine; ATTEND Family Medicine
PROC: 4A023N7 Measurement of Cardiac Sampling and Pressure, Left Heart, Percutaneous Approach (ICD-10-PCS; 2022-01-12)
PROC: B211YZZ Fluoroscopy of Multiple Coronary Arteries using Other Contrast (ICD-10-PCS; 2022-01-12)
PROC: B215YZZ Fluoroscopy of Left Heart using Other Contrast (ICD-10-PCS; 2022-01-12)
PROC: 02HA3RZ Insertion of Short-term External Heart Assist System into Heart, Percutaneous Approach (ICD-10-PCS; principal; 2022-01-14)
PROC: 5A0221D Assistance with Cardiac Output using Impeller Pump, Continuous (ICD-10-PCS; 2022-01-14)
PROC: B241ZZ3 Ultrasonography of Multiple Coronary Arteries, Intravascular (ICD-10-PCS; 2022-01-14)
PROC: 4A023N6 Measurement of Cardiac Sampling and Pressure, Right Heart, Percutaneous Approach (ICD-10-PCS; 2022-01-14)
PROC: 02703ZZ Dilation of Coronary Artery, One Artery, Percutaneous Approach (ICD-10-PCS; 2022-01-14)
PROC: 027036Z Dilation of Coronary Artery, One Artery with Three Drug-eluting Intraluminal Devices, Percutaneous Approach (ICD-10-PCS; 2022-01-14)
PROC: 4A1239Z Monitoring of Cardiac Output, Percutaneous Approach (ICD-10-PCS; 2022-01-14)
DX: I21.9 Acute myocardial infarction, unspecified (principal); N17.0 Acute kidney failure with tubular necrosis; J96.90 Respiratory failure, unspecified, unspecified whether with hypoxia or hypercapnia; I50.22 Chronic systolic (congestive) heart failure; I13.0 Hypertensive heart and chronic kidney disease with heart failure and stage 1 through stage 4 chronic kidney disease, or unspecified chronic kidney disease; I25.10 Atherosclerotic heart disease of native coronary artery without angina pectoris; R57.0 Cardiogenic shock; I27.20 Pulmonary hypertension, unspecified; E55.9 Vitamin D deficiency, unspecified; Z20.822 Contact with and (suspected) exposure to COVID-19; E66.9 Obesity, unspecified; E78.5 Hyperlipidemia, unspecified; N47.1 Phimosis; E11.65 Type 2 diabetes mellitus with hyperglycemia; E78.00 Pure hypercholesterolemia, unspecified; E87.6 Hypokalemia; J45.909 Unspecified asthma, uncomplicated; N14.1 Nephropathy induced by other drugs, medicaments and biological substances; E11.22 Type 2 diabetes mellitus with diabetic chronic kidney disease; N18.9 Chronic kidney disease, unspecified; D63.1 Anemia in chronic kidney disease; R33.8 Other retention of urine; Z79.01 Long term (current) use of anticoagulants; Z68.32 Body mass index [BMI] 32.0-32.9, adult; Z79.4 Long term (current) use of insulin; Z79.899 Other long term (current) drug therapy; Z88.6 Allergy status to analgesic agent; I48.91 Unspecified atrial fibrillation
CPT/HCPCS: 36415; 36600; 71045; 71046; 76775; 76881; 80048; 80053; 80061; 82306; 82805; 82962; 83036; 83605; 83615; 83735; 83880; 83970; 84100; 84443; 84484; 85007; 85025; 85027; 85610; 85730; 86803; 87081; 92920; 92928; 92978; 93005; 93306; 93451; 93458; 93926; 93971; 99152; 99153; A4618; C1724; C1751; C1769; C1874; C1887; C9113; G0378; G0463; J0171; J0330; J0461; J1642; J1815; J2001; J2250; J2405; J3480; P9047; Q9967